=== PATIENT | female | born 1990 | race Caucasian/White ===

== ENCOUNTER 2016-10-09 22:30 | Emergency (ER) | payer MEDICAID ==
[2016-10-09 22:41] VITALS: BMI 26.6
[2016-10-09 22:56] VITALS: BP 129/77; PULSE 98; RESP 16; TEMP 98.8; O2SAT 100
--- NOTE | 2016-10-09 23:10 | ED PDOC ---
Arrival/HPI - General Time Seen by Provider: 10/09/16 22:42 Historian: Patient - History of Present Illness Narrative History of Present Illness (Text): 10/09/16 22:52 26 year old female, whose past medical history includes heart murmur and pelvic and back surgery, presents to the Emergency department complaining of 5 day duration left subareolar abscess. Patient states the abscess is near the area of her left nipple piercing. She notes 2 day duration fever and left nipple pain , swelling, and discharge from the piercing site. Patient reports she was seen at [facility] and the abscess was not seen during an ultrasound. Per patient, she was prescribed 4 days cephalexin which she stopped taking today because she began experiencing left sided groin pressure and urine scent and color change. She denies chest pain, shortness of breath, abdominal pain, nausea, or vomiting. PMD: none Time/Duration: < week Symptom Onset: Gradual Symptom Course: Unchanged Activities at Onset: Rest Past Medical History - Provider Review Nursing Documentation Reviewed: Yes - Infectious Disease Hx of Infectious Diseases: None - Tetanus Immunization Tetanus Immunization: Unknown - Past Medical History Past Medical History: No Previous - Psychiatric Hx Depression: No Hx Emotional Abuse: No Hx Physical Abuse: No Hx Substance Use: No - Surgical History Hx Orthopedic Surgery: Yes (back surgery, pelvic surgery) - Anesthesia Hx Anesthesia: Yes Hx Anesthesia Reactions: No - Suicidal Assessment Feels Threatened In Home Enviroment: No Family/Social History - Physician Review Nursing Documentation Reviewed: Yes Family/Social History: Unknown Family HX Smoking Status: Current Some Days Smoker Hx Alcohol Use: Yes Hx Substance Use: No Hx Substance Use Treatment: No Allergies/Home Meds Allergies/Adverse Reactions: Allergies No Known Allergies Allergy (Verified 09/06/15 23:19) Review of Systems - Physician Review All systems were reviewed & negative as marked: Yes - Review of Systems Constitutional: Fevers Respiratory: absent: SOB Cardiovascular: absent: Chest Pain Gastrointestinal: absent: Abdominal Pain, Diarrhea, Nausea, Vomiting Genitourinary Female: Other (+urine scent and color change) Musculoskeletal: Other (+left sided groin pressure) Skin: Abscess (left nipple pain, swelling, and discharge) Physical Exam Vital Signs Reviewed: Yes Vital Signs Temp Pulse Resp BP Pulse Ox 10/09/16 22:44 98.8 F 98 H 16 129/77 100 Temperature: Afebrile Blood Pressure: Normal Pulse: Regular Respiratory Rate: Normal Appearance: Positive for: Well-Appearing, Non-Toxic, Comfortable Pain Distress: None Mental Status: Positive for: Alert and Oriented X 3 - Systems Exam Head: Present: Atraumatic, Normocephalic Pupils: Present: PERRL Extroacular Muscles: Present: EOMI Conjunctiva: Present: Normal Mouth: Present: Moist Mucous Membranes Neck: Present: Normal Range of Motion Respiratory/Chest: Present: Clear to Auscultation, Good Air Exchange, Other (+ mild erythema and tenderness of left nipple, palpable area 3cm in diameter; no area of fluctuance, no pus drainage with pressure, no nipple drainage; Journeyman Mechanic : Scribe Marimar). No: Respiratory Distress, Accessory Muscle Use, Wheezes, Rales , Rhonchi Cardiovascular: Present: Regular Rate and Rhythm, Normal S1, S2. No: Murmurs, Rub, Gallop Abdomen: Present: Normal Bowel Sounds. No: Tenderness, Distention, Peritoneal Signs, Rebound, Guarding Back: Present: Normal Inspection Upper Extremity: Present: Normal Inspection. No: Cyanosis, Edema Lower Extremity: Present: Normal Inspection. No: Edema Neurological: Present: GCS=15, CN II-XII Intact, Speech Normal Skin: Present: Warm, Dry, Normal Color. No: Rashes Psychiatric: Present: Alert, Oriented x 3, Normal Insight, Normal Concentration Medical Decision Making ED Course and Treatment: 10/09/16 23:16 Impression: 26 year old female complaining of left nipple abscess. Physical exam revealed mild erythema and tenderness of left nipple, palpable area 3cm in diameter; no area of fluctuance, no pus drainage with pressure, no nipple drainage. Plan: --EKG --Urinalysis --blood culture, urine culture --Labs --Toradol -- Reassess and disposition Prior Visits: Notes and results from previous visits were reviewed. Progress Notes: Case discussed with Dr. Auguste who agrees with switching medication to bactrim. She agrees that no ultrasound needed at this time. She states that patient can follow up with her as outpatient. - Lab Interpretations Lab Results: 10/09/16 23:15 10/09/16 23:15 Lab Results 10/09/16 23:15: WBC 8.8, RBC 4.26, Hgb 13.2, Hct 39.4, MCV 92.5, MCH 31.0, MCHC 33.5, RDW 12.3, Plt Count 250, MPV 11.4 H, Gran % 70.6 H, Lymph % (Auto) 22.1, [place] % (Auto) 5.8, Eos % (Auto) 1.4 L, Baso % (Auto) 0.1, Gran # 6.22, Lymph # 2.0, [place] # 0.5, Eos # 0.1, Baso # 0.01, Sodium 140, Potassium 3.6, Chloride 102 , Carbon Dioxide 29, Anion Gap 13, BUN 13, Creatinine 0.6, Est GFR ( Amer ) > 60, Est GFR (Non-Af Amer) > 60, Random Glucose 82, Calcium 9.4 10/09/16 23:12: Urine Color Yellow, Urine Appearance Clear, Urine pH 6.0, Ur Specific [place] 1.025, Urine Protein Negative, Urine Glucose (UA) Negative, Urine Ketones Negative, Urine Blood Negative, Urine Nitrate Negative, Urine Bilirubin Negative, Urine Urobilinogen 0.2, Ur Leukocyte Esterase Negative I have reviewed the lab results: Yes Interpretation: Abnormal lab values - EKG Interpretation EKG Interpretation (Text): 10/09/16 23:20 EKG: Ordered, reviewed, and independently interpreted the EKG. Rate : 91 BPM Rhythm : NSR Interpretation : No ST-segment elevations or depressions, no T-wave inversions, normal intervals. Interpreted by ED Physician: Yes Type: 12 lead EKG - Medication Orders Current Medication Orders: Trimethoprim/Sulfamethoxazole (Bactrim Ds Tab) 1 tab PO STAT STA PRN Reason: Protocol Stop: 10/10/16 00:00 Discontinued Medications Ketorolac Tromethamine (Toradol) 30 mg IVP STAT STA Stop: 10/09/16 22:54 Last Admin: 10/09/16 23:16 Dose: 30 MG IVP Administration Document 10/09/16 23:16 NESSA (Rec: 10/09/16 23:16 NESSA [id number]) Charges for Administration # of IVP Administrations 1 - Scribe Statement The provider has reviewed the documentation as recorded by the Scribe Marimar Lackey Provider Scribe Attestation: All medical record entries made by the Scribe were at my direction and personally dictated by me. I have reviewed the chart and agree that the record accurately reflects my personal performance of the history, physical exam, medical decision making, and the department course for this patient. I have also personally directed, reviewed, and agree with the discharge instructions and disposition. Disposition/Present on Arrival - Present on Arrival Any Indicators Present on Arrival: No History of DVT/PE: No History of Uncontrolled Diabetes: No Urinary Catheter: No History Surgical Site Infection Following: None - Disposition Have Diagnosis and Disposition been Completed?: Yes Diagnosis: Left breast abscess Disposition: HOME/ ROUTINE Disposition Time: 00:02 Patient Plan: Discharge Patient Problems: Current Active Problems Problem Status Diagnosed Left breast abscess Acute Condition: IMPROVED Discharge Instructions (ExitCare): Breast Abscess Drainage (DC) Additional Instructions: Ms Vargas, thank you for letting us take care of you today. Your provider was Dr. Gilliam. You were treated for Left Breast abscess. The emergency medical care you received today was directed at your acute symptoms. If you were prescribed any medication, please fill it and take as directed. It may take several days for your symptoms to resolve. Return to the Emergency Department if your symptoms worsen, do not improve, or if you have any other problems. Please contact your doctor or call one of the physicians/clinics you have been referred to that are listed on the Patient Visit Information form that is included in your discharge packet. Bring any paperwork you were given at discharge with you along with any medications you are taking to your follow up visit. Our treatment cannot replace ongoing medical care by a primary care provider (PCP) outside of the emergency department. Thank you for allowing the [facility] team to be part of your care today. If you had an X-Ray or CT scan: A Radiologist will review the ED reading if any change in treatment is needed we will contact you. If you had a blood, urine, or wound culture: It will take several days for the results, if any change in treatment is needed we will contact you. If you had an STI test: It will take 48 hours for the results. Please call after 1 week if you have not heard back. Prescriptions: Sulfamethoxazole/Trimethoprim [Bactrim DS 800 mg-160 mg] 1 tab PO Q12 #20 tab Ibuprofen [Motrin] 600 mg PO Q6 PRN #30 tab PRN Reason: Pain, Moderate (4-7) oxyCODONE/Acetaminophen [Percocet 5/325 mg Tab] 1 ea PO Q6 PRN #20 tab PRN Reason: Pain, Moderate (4-7) Referrals: Lisa Auguste MD [Staff Provider] - Follow up with primary Forms: WORK NOTE
[2016-10-09 23:20] LABS: URINE BILIRUBIN NEGATIVE (NEGATIVE); URINE BLOOD NEGATIVE (NEGATIVE); URINE GLUCOSE (UA) NEGATIVE (NEGATIVE); URINE KETONE NEGATIVE (NEGATIVE); URINE LEUKOCYTE ESTERASE NEGATIVE Leu/uL (NEGATIVE); URINE PROTEIN NEGATIVE mg/dL (<30 mg/dL); URINE UROBILINOGEN 0.2 E.U./dL (<1 E.U./dL)
[2016-10-09 23:22] LABS: URINE APPEARANCE CLEAR (CLEAR); URINE COLOR YELLOW (YELLOW)
[2016-10-09 23:38] LABS: ADD MANUAL DIFF? NO
[2016-10-09 23:44] LABS: BASO # 0.01 K/mm3 (0.0-2.0); BASO % 0.1 % (0.0-3.0); EOS # 0.1 (0.0-0.7); EOS % 1.4 % (1.5-5.0); GRAN # 6.22 (1.4-6.5); GRAN % 70.6 % (50.0-68.0); HEMATOCRIT 39.4 % (36.0-48.0); LYMPH % 22.1 % (22.0-35.0); MEAN CELL VOLUME 92.5 fL (80.0-105.0); MEAN CORPUSCULAR HGB CONC 33.5 g/dl (31.0-37.0); MEAN PLATELET VOLUME 11.4 fl (7.0-11.0); MONO # 0.5 (0.1-0.6); MONO % 5.8 % (1.0-6.0); PLATELET COUNT 250 10^3/uL (120.0-450.0); RED CELL DISTRIBUTION WIDTH 12.3 % (11.5-14.5); WHITE BLOOD COUNT 8.8 10^3/ul (4.5-11.0)
[2016-10-09 23:56] LABS: BLOOD UREA NITROGEN 13 mg/dL (7-21); CALCIUM 9.4 mg/dL (8.4-10.5); CARBON DIOXIDE 29 mmol/L (21-33); CHLORIDE 102 mmol/L (98-107); GFR AFRICAN-AMERICAN > 60; GLUCOSE,RANDOM 82 mg/dL (70-110); POTASSIUM 3.6 mmol/L (3.6-5.0); SODIUM 140 mmol/L (132-148)
[2016-10-09] MEDS ORDERED: Tmp-Smz 800 mg-160 mg DS Tab PO STA (23:59)
--- NOTE | 2016-10-10 10:09 | CARD ---
APPROVED REPORT EKG Measurement Heart [id number] <Conclusion> Normal sinus rhythm Nonspecific T wave abnormality and RVCD, new
== END 2016-10-10 00:23 | disposition home or self-care (01) ==
LOC: ED 22:30
DX: N61.1 Abscess of the breast and nipple (principal); F17.210 Nicotine dependence, cigarettes, uncomplicated
CPT/HCPCS: 80048; 81003; 85025; 87040; 87086; 93005; 96374; 99283; J1885